=== PATIENT | male | born 1955 | race Caucasian/White ===

== ENCOUNTER 2018-01-06 20:48 | Observation (INO) | payer OTHER ==
[~2018-01-06] VITALS: Ht 195.6 cm; Wt 216.6 kg
[~2018-01-06 20:48] MED LIST: ALBU90OI6 INH; AMLO5; BENA20; BUDE6HFA; CLON1; FURO40 PO; HYDACE10B; Isosorbide Mono30 MG; METF850 PO; METO100ER PO; MONT10T; POTCHL20ER; WARF7.5 PO
[2018-01-06 21:33] LABS: Albumin, Blood 3.8 g/dL (3.4-5.0); Albumin/Globulin Ratio 0.9 (0.8-1.8); Bilirubin, Total 0.2 mg/dL (0.1-1.0); Bun/Creatinine Ratio 39.6 (12.0-20.0); Creatinine, Blood 1.82 mg/dL (0.60-1.20); Globulin, Blood 4.3 g/dL (2.2-4.0); Potassium, Blood 5.7 mmol/L (3.5-5.5); Total Protein, Blood 8.1 g/dL (6.4-8.2)
[2018-01-06] MEDS ORDERED: WARF7.5 PO (23:03)
[2018-01-06] MEDS ORDERED: SPIR25 (23:13)
[2018-01-07 04:32] LABS: International Normalized Ratio 2.56; Prothrombin Time Results 27.4 Sec (9.7-11.5)
[2018-01-07 04:37] LABS: Calcium, Blood 8.5 mg/dL (8.5-10.1); Creatinine, Blood 1.65 mg/dL (0.60-1.20); Potassium, Blood 5.4 mmol/L (3.5-5.5)
[2018-01-07] MEDS ORDERED: FURO40 PO (11:15)
[2018-01-08 04:00] LABS: International Normalized Ratio 3.21; Prothrombin Time Results 34.6 Sec (9.7-11.5)
[2018-01-08 04:09] LABS: Albumin, Blood 3.5 g/dL (3.4-5.0); Anion Gap 8 mmol/L (6-16); Blood Urea Nitrogen 39 mg/dL (8-24); Bun/Creatinine Ratio 29.8 (12.0-20.0); CO2, Blood 22 mmol/L (21-32); Calcium, Blood 9.1 mg/dL (8.5-10.1); Chloride, Blood 109 mmol/L (98-108); Creatinine, Blood 1.31 mg/dL (0.60-1.20); Glomerular Filtration Rate 59 (60-); Glucose, Blood 110 mg/dL (70-99); Phosphorus, Blood 2.6 mg/dL (2.5-4.9); Potassium, Blood 5.3 mmol/L (3.5-5.5); Sodium, Blood 139 mmol/L (136-145)
== END 2018-01-08 09:07 | disposition home or self-care (01) ==
LOC: ER 20:48 → PCU 20:49
PROVIDERS: Emergency Medicine; Internal Medicine; Pharmacist
DX: N17.9 Acute kidney failure, unspecified (principal); I13.0 Hypertensive heart and chronic kidney disease with heart failure and stage 1 through stage 4 chronic kidney disease, or unspecified chronic kidney disease; I50.9 Heart failure, unspecified; E11.22 Type 2 diabetes mellitus with diabetic chronic kidney disease; N18.9 Chronic kidney disease, unspecified; E87.5 Hyperkalemia; E66.01 Morbid (severe) obesity due to excess calories; I48.2 Chronic atrial fibrillation; Z98.890 Other specified postprocedural states; Z88.8 Allergy status to other drugs, medicaments and biological substances; Z79.01 Long term (current) use of anticoagulants; Z79.84 Long term (current) use of oral hypoglycemic drugs; Z79.899 Other long term (current) drug therapy
CPT/HCPCS: 36415; 76770; 80048; 80053; 80069; 82947; 84132; 85610; 93005; 93010; 94660; 94762; 96365; 96375; 96376; 99285; G0378; J0610; J1815; J7120

== ENCOUNTER 2018-04-21 12:15 | Emergency (ER) | payer OTHER ==
[~2018-04-21] VITALS: Ht 195.6 cm; Wt 200.0 kg
[~2018-04-21 12:15] MED LIST changes: +SPIR25
[2018-04-21] MEDS ORDERED: ULTRA-LIGHT RO1 EACH MC (13:56)
[2018-04-21] MEDS ORDERED: Percocet 7.5-31 EACH PO (13:57)
== END 2018-04-21 14:05 | disposition home or self-care (01) ==
LOC: ER 12:15
DX: S99.921A Unspecified injury of right foot, initial encounter (principal); S99.911A Unspecified injury of right ankle, initial encounter; I48.91 Unspecified atrial fibrillation; I10 Essential (primary) hypertension; J45.909 Unspecified asthma, uncomplicated; E11.9 Type 2 diabetes mellitus without complications; E78.5 Hyperlipidemia, unspecified; Z88.8 Allergy status to other drugs, medicaments and biological substances; Z79.899 Other long term (current) drug therapy; Z79.01 Long term (current) use of anticoagulants; Z79.51 Long term (current) use of inhaled steroids; Z87.891 Personal history of nicotine dependence; W01.0XXA Fall on same level from slipping, tripping and stumbling without subsequent striking against object, initial encounter
CPT/HCPCS: 73610; 73630; 99283-25

== ENCOUNTER 2018-06-02 00:13 | Day surgery (SDC) | payer OTHER ==
[~2018-06-02 00:13] MED LIST changes: +Percocet 7.5-31 EACH PO; +ULTRA-LIGHT RO1 EACH MC
== END 2018-06-02 22:46 | disposition home or self-care (01) ==
LOC: WOUND 00:13
DX: E11.622 Type 2 diabetes mellitus with other skin ulcer (principal); L97.812 Non-pressure chronic ulcer of other part of right lower leg with fat layer exposed; R60.0 Localized edema; E11.21 Type 2 diabetes mellitus with diabetic nephropathy; E11.51 Type 2 diabetes mellitus with diabetic peripheral angiopathy without gangrene; I48.91 Unspecified atrial fibrillation; E11.59 Type 2 diabetes mellitus with other circulatory complications; I11.0 Hypertensive heart disease with heart failure; I50.9 Heart failure, unspecified; E78.5 Hyperlipidemia, unspecified; Z79.01 Long term (current) use of anticoagulants; G47.33 Obstructive sleep apnea (adult) (pediatric); Z68.43 Body mass index [BMI] 50.0-59.9, adult

== ENCOUNTER → 2019-08-28 | Outpatient (CLI) | payer OTHER ==
[2019-08-28 20:24] LABS: U Amphetamine Screen Not Detected; U Barbituate Screen Not Detected; U Benzodiazapine Screen Not Detected; U Cannabinoids Screen Not Detected; U Cocaine Screen Not Detected; U Methadone Screen Not Detected; U Methamphetamine Screen Not Detected; U Opiates Screen Not Detected; U Phencyclidine Screen Not Detected
[2019-08-28 20:25] LABS: U Buprenorphine Screen Not Detected; U Oxycodone Screen Not Detected; U Propoxyphene Screen Not Detected
== END | disposition home or self-care (01) ==
LOC: LAB SHORT 19:11 → LAB 19:11
PROVIDERS: Nurse Practitioner Family
DX: Z51.81 Encounter for therapeutic drug level monitoring (principal); Z79.899 Other long term (current) drug therapy

== ENCOUNTER → 2021-03-17 | Outpatient (CLI) | payer OTHER ==
[2021-03-17 16:40] LABS: BASOPHILS ABSOLUTE AUTO 0.09 K/mm3 (0.00-0.23); BASOPHILS PERCENT AUTO 1 % (0-2); EOSINOPHILS ABSOLUTE AUTO 0.78 K/mm3 (0.00-0.68); EOSINOPHILS PERCENT AUTO 7 % (0-6); Hematocrit 37.7 % (37.0-53.0); IMMATURE GRAN ABSOLUTE AUTO 0.05 K/mm3 (0.00-0.10); IMMATURE GRAN PERCENT AUTO 0 % (0-1); LYMPHOCYTES ABSOLUTE AUTO 2.01 K/mm3 (0.84-5.20); LYMPHOCYTES PERCENT AUTO 18 % (21-46); MONOCYTES ABSOLUTE AUTO 0.93 K/mm3 (0.16-1.47); MONOCYTES PERCENT AUTO 8 % (4-13); Mean Corpuscular HGB 25.7 pg (26.0-34.0); Mean Corpuscular HGB Conc 31.8 g/dL (31.5-36.5); Mean Corpuscular Volume 81 fL (80-100); Mean Platelet Volume 10.9 fL (9.1-12.4); NEUTROPHILS PERCENT AUTO 66 % (41-73); Platelet Count 276 K/mm3 (150-400); RDW Coefficient Variation 15.1 % (11.7-14.2); RDW Standard Deviation 43.9 fL (35.1-46.3); Red Blood Cell Count 4.67 M/mm3 (4.30-5.90); White Blood Cell Count 11.46 K/mm3 (4.00-11.30)
[2021-03-17 16:59] LABS: Alanine Aminotransfer (ALT/SGP 28 U/L (12-78); Albumin, Blood 3.5 g/dL (3.4-5.0); Albumin/Globulin Ratio 0.8 (0.8-1.8); Alk Phos 95 U/L (50-136); Anion Gap 9 mmol/L (6-16); Aspartate Aminotrans (AST/SGOT 37 U/L (12-37); Bilirubin, Total 0.4 mg/dL (0.1-1.0); Blood Urea Nitrogen 32 mg/dL (8-24); Bun/Creatinine Ratio 22.4 (12.0-20.0); CHOL/HDL RATIO 3.7; CO2, Blood 19 mmol/L (21-32); Calcium, Blood 9.2 mg/dL (8.5-10.1); Chloride, Blood 103 mmol/L (98-108); Cholesterol 149 mg/dL (50-200); Creatinine, Blood 1.43 mg/dL (0.60-1.20); Globulin, Blood 4.6 g/dL (2.2-4.0); Glomerular Filtration Rate 50 (60-); Glucose, Blood 139 mg/dL (70-99); HDL Cholesterol 40 mg/dL (>39); LDL/HDL RATIO 2.1; Low Density Lipoprotein Chol 84 mg/dL (0-110); Potassium, Blood 5.3 mmol/L (3.5-5.5); Sodium, Blood 131 mmol/L (136-145); Thyroxine (T4) 10.3 ug/dL (4.5-12.1); Total Protein, Blood 8.1 g/dL (6.4-8.2); Triglycerides 123 mg/dL (30-160); Very Low Density Lipoprot Chol 24 mg/dL (6-32)
[2021-03-17 17:00] LABS: Thyroid Stimulating Hormone 0.976 uIU/mL (0.360-4.800)
[2021-03-17 17:10] LABS: U Buprenorphine Screen Not Detected; U Cannabinoids Screen Not Detected; U Opiates Screen DETECTED; U Oxycodone Screen Not Detected; U Phencyclidine Screen Not Detected; U Propoxyphene Screen Not Detected
[2021-03-17 17:11] LABS: U Amphetamine Screen Not Detected; U Barbituate Screen Not Detected; U Benzodiazapine Screen Not Detected; U Cocaine Screen Not Detected; U Methadone Screen Not Detected; U Methamphetamine Screen Not Detected
== END | disposition home or self-care (01) ==
LOC: LAB SHORT 15:36 → LAB 15:36 → LAB FUT 03-17 10:35
PROVIDERS: Nurse Practitioner Family
DX: E11.51 Type 2 diabetes mellitus with diabetic peripheral angiopathy without gangrene (principal); E66.9 Obesity, unspecified
CPT/HCPCS: 80053; 80061; 82043; 83036; 84436; 84443; 85025

== ENCOUNTER → 2021-05-28 | Outpatient (CLI) | payer OTHER ==
[2021-05-28 18:20] LABS: BASOPHILS ABSOLUTE AUTO 0.06 K/mm3 (0.00-0.23); BASOPHILS PERCENT AUTO 1 % (0-2); EOSINOPHILS ABSOLUTE AUTO 0.45 K/mm3 (0.00-0.68); EOSINOPHILS PERCENT AUTO 4 % (0-6); Hematocrit 35.2 % (37.0-53.0); Hemoglobin 11.3 g/dL (13.5-17.5); IMMATURE GRAN ABSOLUTE AUTO 0.05 K/mm3 (0.00-0.10); IMMATURE GRAN PERCENT AUTO 0 % (0-1); LYMPHOCYTES ABSOLUTE AUTO 1.62 K/mm3 (0.84-5.20); LYMPHOCYTES PERCENT AUTO 13 % (21-46); MONOCYTES ABSOLUTE AUTO 1.18 K/mm3 (0.16-1.47); MONOCYTES PERCENT AUTO 9 % (4-13); Mean Corpuscular HGB Conc 32.1 g/dL (31.5-36.5); Mean Corpuscular Volume 81 fL (80-100); Mean Platelet Volume 10.5 fL (9.1-12.4); NEUTROPHILS ABSOLUTE AUTO 9.21 K/mm3 (1.96-9.15); NEUTROPHILS PERCENT AUTO 73 % (41-73); Platelet Count 348 K/mm3 (150-400); RDW Coefficient Variation 13.7 % (11.7-14.2); RDW Standard Deviation 40.3 fL (35.1-46.3); Red Blood Cell Count 4.34 M/mm3 (4.30-5.90); White Blood Cell Count 12.57 K/mm3 (4.00-11.30)
== END | disposition home or self-care (01) ==
LOC: LAB SHORT 12:00
PROVIDERS: Nurse Practitioner Family
DX: L03.113 Cellulitis of right upper limb (principal)
CPT/HCPCS: 85025

== ENCOUNTER 2021-06-11 13:39 | Day surgery (SDC) | payer OTHER | END 2021-06-11 23:01 | disposition home or self-care (01) | LOC: WOUND 13:39 | DX: L03.113 Cellulitis of right upper limb (principal); I87.2 Venous insufficiency (chronic) (peripheral); Z88.8 Allergy status to other drugs, medicaments and biological substances; Z87.891 Personal history of nicotine dependence | CPT/HCPCS: G0463 ==

== ENCOUNTER → 2021-07-03 | Outpatient (CLI) | payer OTHER ==
[2021-07-03 17:01] LABS: BASOPHILS ABSOLUTE AUTO 0.03 K/mm3 (0.00-0.23); BASOPHILS PERCENT AUTO 0 % (0-2); EOSINOPHILS PERCENT AUTO 6 % (0-6); Hematocrit 33.9 % (37.0-53.0); Hemoglobin 10.4 g/dL (13.5-17.5); IMMATURE GRAN ABSOLUTE AUTO 0.05 K/mm3 (0.00-0.10); IMMATURE GRAN PERCENT AUTO 0 % (0-1); LYMPHOCYTES ABSOLUTE AUTO 1.71 K/mm3 (0.84-5.20); LYMPHOCYTES PERCENT AUTO 15 % (21-46); MONOCYTES ABSOLUTE AUTO 0.94 K/mm3 (0.16-1.47); MONOCYTES PERCENT AUTO 8 % (4-13); Mean Corpuscular HGB 25.1 pg (26.0-34.0); Mean Corpuscular HGB Conc 30.7 g/dL (31.5-36.5); Mean Corpuscular Volume 82 fL (80-100); Mean Platelet Volume 9.9 fL (9.1-12.4); NEUTROPHILS ABSOLUTE AUTO 7.89 K/mm3 (1.96-9.15); NEUTROPHILS PERCENT AUTO 70 % (41-73); Platelet Count 327 K/mm3 (150-400); RDW Coefficient Variation 14.4 % (11.7-14.2); RDW Standard Deviation 42.2 fL (35.1-46.3); Red Blood Cell Count 4.14 M/mm3 (4.30-5.90); White Blood Cell Count 11.32 K/mm3 (4.00-11.30)
[2021-07-03 17:14] LABS: Albumin, Blood 2.7 g/dL (3.4-5.0); Albumin/Globulin Ratio 0.6 (0.8-1.8); Bilirubin, Total 0.3 mg/dL (0.1-1.0); Bun/Creatinine Ratio 18.1 (12.0-20.0); Calcium, Blood 9.4 mg/dL (8.5-10.1); Creatinine, Blood 1.44 mg/dL (0.60-1.20); Globulin, Blood 4.8 g/dL (2.2-4.0); Potassium, Blood 4.2 mmol/L (3.5-5.5); Total Protein, Blood 7.5 g/dL (6.4-8.2); Uric Acid, Blood 10.2 mg/dL (3.5-7.2)
== END | disposition home or self-care (01) ==
LOC: LAB SHORT 14:00
PROVIDERS: Nurse Practitioner Family
DX: M1A.0210 Idiopathic chronic gout, right elbow, without tophus (tophi) (principal); M1A Chronic gout; L03.113 Cellulitis of right upper limb
CPT/HCPCS: 80053; 84550; 85025

== ENCOUNTER → 2021-10-09 | Outpatient (CLI) | payer OTHER ==
[2021-10-09 18:46] LABS: U Amphetamine Screen Not Detected; U Barbituate Screen Not Detected; U Benzodiazapine Screen Not Detected; U Buprenorphine Screen Not Detected; U Cannabinoids Screen Not Detected; U Cocaine Screen Not Detected; U Methadone Screen Not Detected; U Methamphetamine Screen Not Detected; U Opiates Screen DETECTED; U Oxycodone Screen Not Detected; U Phencyclidine Screen Not Detected; U Propoxyphene Screen Not Detected
== END | disposition home or self-care (01) ==
LOC: LAB 16:11 → LAB SHORT 16:11
PROVIDERS: Family Medicine
DX: Z51.81 Encounter for therapeutic drug level monitoring (principal); Z79.899 Other long term (current) drug therapy

== ENCOUNTER 2022-01-12 00:47 | Day surgery (SDC) | payer OTHER | END 2022-01-12 23:49 | disposition home or self-care (01) | LOC: WOUND 00:47 | DX: E11.621 Type 2 diabetes mellitus with foot ulcer (principal); L97.822 Non-pressure chronic ulcer of other part of left lower leg with fat layer exposed; L97.512 Non-pressure chronic ulcer of other part of right foot with fat layer exposed; I87.2 Venous insufficiency (chronic) (peripheral); E11.51 Type 2 diabetes mellitus with diabetic peripheral angiopathy without gangrene; J44.9 Chronic obstructive pulmonary disease, unspecified; I25.10 Atherosclerotic heart disease of native coronary artery without angina pectoris; I13.0 Hypertensive heart and chronic kidney disease with heart failure and stage 1 through stage 4 chronic kidney disease, or unspecified chronic kidney disease; E11.22 Type 2 diabetes mellitus with diabetic chronic kidney disease; I50.9 Heart failure, unspecified; N18.30 Chronic kidney disease, stage 3 unspecified; Z88.8 Allergy status to other drugs, medicaments and biological substances; Z87.891 Personal history of nicotine dependence | CPT/HCPCS: A9270; G0463 ==

== ENCOUNTER 2022-01-19 08:00 | Day surgery (SDC) | payer OTHER | END 2022-01-19 23:59 | disposition home or self-care (01) | LOC: WOUND | DX: E11.621 Type 2 diabetes mellitus with foot ulcer (principal); L97.512 Non-pressure chronic ulcer of other part of right foot with fat layer exposed; L97.822 Non-pressure chronic ulcer of other part of left lower leg with fat layer exposed; I87.2 Venous insufficiency (chronic) (peripheral); E11.51 Type 2 diabetes mellitus with diabetic peripheral angiopathy without gangrene; I48.91 Unspecified atrial fibrillation | CPT/HCPCS: A9270 ==

== ENCOUNTER 2022-01-26 02:33 | Day surgery (SDC) | payer OTHER | END 2022-01-26 23:15 | disposition home or self-care (01) | LOC: WOUND 02:33 | DX: E11.621 Type 2 diabetes mellitus with foot ulcer (principal); L97.512 Non-pressure chronic ulcer of other part of right foot with fat layer exposed; E11.622 Type 2 diabetes mellitus with other skin ulcer; L97.822 Non-pressure chronic ulcer of other part of left lower leg with fat layer exposed; E11.51 Type 2 diabetes mellitus with diabetic peripheral angiopathy without gangrene; I87.2 Venous insufficiency (chronic) (peripheral); I10 Essential (primary) hypertension; I25.5 Ischemic cardiomyopathy; I48.91 Unspecified atrial fibrillation; Z79.01 Long term (current) use of anticoagulants | CPT/HCPCS: A9270 ==

== ENCOUNTER 2022-01-27 04:45 | Day surgery (SDC) | payer OTHER | END 2022-01-27 22:59 | disposition home or self-care (01) | LOC: WOUND 04:45 | DX: E11.621 Type 2 diabetes mellitus with foot ulcer (principal); L97.512 Non-pressure chronic ulcer of other part of right foot with fat layer exposed; I87.2 Venous insufficiency (chronic) (peripheral); E11.51 Type 2 diabetes mellitus with diabetic peripheral angiopathy without gangrene ==

== ENCOUNTER 2022-01-30 03:41 | Day surgery (SDC) | payer OTHER | END 2022-01-30 23:12 | disposition home or self-care (01) | LOC: WOUND 03:41 | DX: E11.621 Type 2 diabetes mellitus with foot ulcer (principal); L97.512 Non-pressure chronic ulcer of other part of right foot with fat layer exposed; I87.2 Venous insufficiency (chronic) (peripheral); E11.51 Type 2 diabetes mellitus with diabetic peripheral angiopathy without gangrene ==

== ENCOUNTER 2022-02-03 01:33 | Day surgery (SDC) | payer OTHER | END 2022-02-03 23:00 | disposition home or self-care (01) | LOC: WOUND 01:33 | DX: I87.313 Chronic venous hypertension (idiopathic) with ulcer of bilateral lower extremity (principal); I87.2 Venous insufficiency (chronic) (peripheral); E11.621 Type 2 diabetes mellitus with foot ulcer; E11.622 Type 2 diabetes mellitus with other skin ulcer; L97.512 Non-pressure chronic ulcer of other part of right foot with fat layer exposed; L97.812 Non-pressure chronic ulcer of other part of right lower leg with fat layer exposed; L97.822 Non-pressure chronic ulcer of other part of left lower leg with fat layer exposed | CPT/HCPCS: A9270 ==

== ENCOUNTER 2022-02-09 00:31 | Day surgery (SDC) | payer OTHER | END 2022-02-09 23:46 | disposition home or self-care (01) | LOC: WOUND 00:31 | DX: I87.313 Chronic venous hypertension (idiopathic) with ulcer of bilateral lower extremity (principal); E11.622 Type 2 diabetes mellitus with other skin ulcer; L97.822 Non-pressure chronic ulcer of other part of left lower leg with fat layer exposed; L97.812 Non-pressure chronic ulcer of other part of right lower leg with fat layer exposed; E11.621 Type 2 diabetes mellitus with foot ulcer; L97.512 Non-pressure chronic ulcer of other part of right foot with fat layer exposed; I10 Essential (primary) hypertension; I25.5 Ischemic cardiomyopathy; Z68.43 Body mass index [BMI] 50.0-59.9, adult | CPT/HCPCS: A9270 ==

== ENCOUNTER 2022-02-13 02:25 | Day surgery (SDC) | payer OTHER | END 2022-02-13 23:16 | disposition home or self-care (01) | LOC: WOUND 02:25 | DX: I87.313 Chronic venous hypertension (idiopathic) with ulcer of bilateral lower extremity (principal); E11.622 Type 2 diabetes mellitus with other skin ulcer; L97.822 Non-pressure chronic ulcer of other part of left lower leg with fat layer exposed; L97.812 Non-pressure chronic ulcer of other part of right lower leg with fat layer exposed; E11.621 Type 2 diabetes mellitus with foot ulcer; L97.512 Non-pressure chronic ulcer of other part of right foot with fat layer exposed; I87.2 Venous insufficiency (chronic) (peripheral); E11.51 Type 2 diabetes mellitus with diabetic peripheral angiopathy without gangrene ==

== ENCOUNTER 2022-02-19 01:33 | Day surgery (SDC) | payer OTHER | END 2022-02-20 23:37 | disposition home or self-care (01) | LOC: WOUND 01:33 | DX: E11.621 Type 2 diabetes mellitus with foot ulcer (principal); I87.313 Chronic venous hypertension (idiopathic) with ulcer of bilateral lower extremity; L97.512 Non-pressure chronic ulcer of other part of right foot with fat layer exposed; E11.622 Type 2 diabetes mellitus with other skin ulcer; L97.812 Non-pressure chronic ulcer of other part of right lower leg with fat layer exposed; L97.822 Non-pressure chronic ulcer of other part of left lower leg with fat layer exposed; I87.2 Venous insufficiency (chronic) (peripheral); E11.51 Type 2 diabetes mellitus with diabetic peripheral angiopathy without gangrene | CPT/HCPCS: A9270; G0463 ==

== ENCOUNTER 2022-02-27 01:16 | Day surgery (SDC) | payer OTHER | END 2022-02-27 23:08 | disposition home or self-care (01) | LOC: WOUND 01:16 | DX: I87.313 Chronic venous hypertension (idiopathic) with ulcer of bilateral lower extremity (principal); E11.621 Type 2 diabetes mellitus with foot ulcer; L97.512 Non-pressure chronic ulcer of other part of right foot with fat layer exposed; L97.522 Non-pressure chronic ulcer of other part of left foot with fat layer exposed; E11.622 Type 2 diabetes mellitus with other skin ulcer; L97.212 Non-pressure chronic ulcer of right calf with fat layer exposed; L97.812 Non-pressure chronic ulcer of other part of right lower leg with fat layer exposed; L97.822 Non-pressure chronic ulcer of other part of left lower leg with fat layer exposed; L97.322 Non-pressure chronic ulcer of left ankle with fat layer exposed; E11.51 Type 2 diabetes mellitus with diabetic peripheral angiopathy without gangrene; I87.2 Venous insufficiency (chronic) (peripheral); I10 Essential (primary) hypertension; I48.91 Unspecified atrial fibrillation; Z79.01 Long term (current) use of anticoagulants | CPT/HCPCS: A9270; G0463 ==

== ENCOUNTER 2022-03-06 02:26 | Day surgery (SDC) | payer OTHER | END 2022-03-06 23:22 | disposition home or self-care (01) | LOC: WOUND 02:26 | DX: E11.622 Type 2 diabetes mellitus with other skin ulcer (principal); L97.822 Non-pressure chronic ulcer of other part of left lower leg with fat layer exposed; I87.313 Chronic venous hypertension (idiopathic) with ulcer of bilateral lower extremity; L97.812 Non-pressure chronic ulcer of other part of right lower leg with fat layer exposed; E11.51 Type 2 diabetes mellitus with diabetic peripheral angiopathy without gangrene; E11.621 Type 2 diabetes mellitus with foot ulcer; L97.512 Non-pressure chronic ulcer of other part of right foot with fat layer exposed; I10 Essential (primary) hypertension; I25.5 Ischemic cardiomyopathy | CPT/HCPCS: A9270 ==

== ENCOUNTER 2022-03-13 01:49 | Day surgery (SDC) | payer OTHER | END 2022-03-13 23:34 | disposition home or self-care (01) | LOC: WOUND 01:49 | DX: I87.313 Chronic venous hypertension (idiopathic) with ulcer of bilateral lower extremity (principal); E11.621 Type 2 diabetes mellitus with foot ulcer; E11.622 Type 2 diabetes mellitus with other skin ulcer; L97.822 Non-pressure chronic ulcer of other part of left lower leg with fat layer exposed; L97.812 Non-pressure chronic ulcer of other part of right lower leg with fat layer exposed; L97.512 Non-pressure chronic ulcer of other part of right foot with fat layer exposed; L97.522 Non-pressure chronic ulcer of other part of left foot with fat layer exposed; I87.2 Venous insufficiency (chronic) (peripheral); E11.51 Type 2 diabetes mellitus with diabetic peripheral angiopathy without gangrene | CPT/HCPCS: A9270 ==

== ENCOUNTER 2022-03-23 00:10 | Day surgery (SDC) | payer OTHER | END 2022-03-24 00:49 | disposition home or self-care (01) | LOC: WOUND 00:10 | PROC: 0JBP0ZZ Excision of Left Lower Leg Subcutaneous Tissue and Fascia, Open Approach (ICD-10-PCS; principal; 2022-03-23) | DX: E11.51 Type 2 diabetes mellitus with diabetic peripheral angiopathy without gangrene (principal); L97.822 Non-pressure chronic ulcer of other part of left lower leg with fat layer exposed; I70.248 Atherosclerosis of native arteries of left leg with ulceration of other part of lower leg; L97.812 Non-pressure chronic ulcer of other part of right lower leg with fat layer exposed; I70.238 Atherosclerosis of native arteries of right leg with ulceration of other part of lower leg; L98.492 Non-pressure chronic ulcer of skin of other sites with fat layer exposed; I70.25 Atherosclerosis of native arteries of other extremities with ulceration; L97.819 Non-pressure chronic ulcer of other part of right lower leg with unspecified severity; I10 Essential (primary) hypertension; I87.313 Chronic venous hypertension (idiopathic) with ulcer of bilateral lower extremity; I87.2 Venous insufficiency (chronic) (peripheral); I48.91 Unspecified atrial fibrillation; Z79.01 Long term (current) use of anticoagulants | CPT/HCPCS: A9270 ==

== ENCOUNTER 2022-03-30 01:13 | Day surgery (SDC) | payer OTHER | END 2022-03-30 23:19 | disposition home or self-care (01) | LOC: WOUND 01:13 | DX: I87.313 Chronic venous hypertension (idiopathic) with ulcer of bilateral lower extremity (principal); L97.822 Non-pressure chronic ulcer of other part of left lower leg with fat layer exposed; L97.812 Non-pressure chronic ulcer of other part of right lower leg with fat layer exposed; I87.2 Venous insufficiency (chronic) (peripheral); E11.621 Type 2 diabetes mellitus with foot ulcer; E11.622 Type 2 diabetes mellitus with other skin ulcer; E11.51 Type 2 diabetes mellitus with diabetic peripheral angiopathy without gangrene; L97.512 Non-pressure chronic ulcer of other part of right foot with fat layer exposed | CPT/HCPCS: A9270 ==

== ENCOUNTER 2022-04-08 06:26 | Day surgery (SDC) | payer OTHER | END 2022-04-08 23:31 | disposition home or self-care (01) | LOC: WOUND 06:26 | DX: I87.313 Chronic venous hypertension (idiopathic) with ulcer of bilateral lower extremity (principal); L97.822 Non-pressure chronic ulcer of other part of left lower leg with fat layer exposed; L97.812 Non-pressure chronic ulcer of other part of right lower leg with fat layer exposed; E11.621 Type 2 diabetes mellitus with foot ulcer; L97.512 Non-pressure chronic ulcer of other part of right foot with fat layer exposed; I87.2 Venous insufficiency (chronic) (peripheral) ==

== ENCOUNTER 2022-04-15 07:34 | Day surgery (SDC) | payer OTHER | END 2022-04-15 23:41 | disposition home or self-care (01) | LOC: WOUND 07:34 | DX: E11.622 Type 2 diabetes mellitus with other skin ulcer (principal); E11.621 Type 2 diabetes mellitus with foot ulcer; L97.822 Non-pressure chronic ulcer of other part of left lower leg with fat layer exposed; L97.812 Non-pressure chronic ulcer of other part of right lower leg with fat layer exposed; E11.51 Type 2 diabetes mellitus with diabetic peripheral angiopathy without gangrene; L97.512 Non-pressure chronic ulcer of other part of right foot with fat layer exposed; I87.2 Venous insufficiency (chronic) (peripheral); I87.313 Chronic venous hypertension (idiopathic) with ulcer of bilateral lower extremity; L97.212 Non-pressure chronic ulcer of right calf with fat layer exposed | CPT/HCPCS: A9270; G0463 ==

== ENCOUNTER 2022-05-04 00:51 | Day surgery (SDC) | payer OTHER | END 2022-05-04 23:00 | disposition home or self-care (01) | LOC: WOUND 00:51 | DX: E11.622 Type 2 diabetes mellitus with other skin ulcer (principal); E11.621 Type 2 diabetes mellitus with foot ulcer; I87.313 Chronic venous hypertension (idiopathic) with ulcer of bilateral lower extremity; L97.512 Non-pressure chronic ulcer of other part of right foot with fat layer exposed; L97.212 Non-pressure chronic ulcer of right calf with fat layer exposed; L97.522 Non-pressure chronic ulcer of other part of left foot with fat layer exposed; L97.822 Non-pressure chronic ulcer of other part of left lower leg with fat layer exposed; L97.812 Non-pressure chronic ulcer of other part of right lower leg with fat layer exposed; E11.51 Type 2 diabetes mellitus with diabetic peripheral angiopathy without gangrene; I87.2 Venous insufficiency (chronic) (peripheral); I10 Essential (primary) hypertension; I25.5 Ischemic cardiomyopathy; I48.91 Unspecified atrial fibrillation | CPT/HCPCS: A9270; G0463 ==

== ENCOUNTER 2022-05-18 02:04 | Day surgery (SDC) | payer OTHER | END 2022-05-18 23:26 | disposition home or self-care (01) | LOC: WOUND 02:04 | DX: E11.622 Type 2 diabetes mellitus with other skin ulcer (principal); I87.313 Chronic venous hypertension (idiopathic) with ulcer of bilateral lower extremity; E11.621 Type 2 diabetes mellitus with foot ulcer; L97.812 Non-pressure chronic ulcer of other part of right lower leg with fat layer exposed; L97.212 Non-pressure chronic ulcer of right calf with fat layer exposed; L97.822 Non-pressure chronic ulcer of other part of left lower leg with fat layer exposed; L97.522 Non-pressure chronic ulcer of other part of left foot with fat layer exposed; L97.512 Non-pressure chronic ulcer of other part of right foot with fat layer exposed; I87.2 Venous insufficiency (chronic) (peripheral); E11.51 Type 2 diabetes mellitus with diabetic peripheral angiopathy without gangrene; I10 Essential (primary) hypertension; I25.5 Ischemic cardiomyopathy; I48.91 Unspecified atrial fibrillation; Z79.01 Long term (current) use of anticoagulants | CPT/HCPCS: A9270 ==

== ENCOUNTER 2022-05-25 02:38 | Day surgery (SDC) | payer OTHER | END 2022-05-25 23:16 | disposition home or self-care (01) | LOC: WOUND 02:38 | DX: I87.313 Chronic venous hypertension (idiopathic) with ulcer of bilateral lower extremity (principal); E11.622 Type 2 diabetes mellitus with other skin ulcer; E11.621 Type 2 diabetes mellitus with foot ulcer; L97.812 Non-pressure chronic ulcer of other part of right lower leg with fat layer exposed; L97.822 Non-pressure chronic ulcer of other part of left lower leg with fat layer exposed; L97.512 Non-pressure chronic ulcer of other part of right foot with fat layer exposed; E11.51 Type 2 diabetes mellitus with diabetic peripheral angiopathy without gangrene; I87.2 Venous insufficiency (chronic) (peripheral); I10 Essential (primary) hypertension; I25.5 Ischemic cardiomyopathy; I48.91 Unspecified atrial fibrillation; Z79.01 Long term (current) use of anticoagulants | CPT/HCPCS: A9270 ==

== ENCOUNTER 2022-06-01 00:17 | Day surgery (SDC) | payer OTHER | END 2022-06-01 22:50 | disposition home or self-care (01) | LOC: WOUND 00:17 | DX: E11.622 Type 2 diabetes mellitus with other skin ulcer (principal); I87.313 Chronic venous hypertension (idiopathic) with ulcer of bilateral lower extremity; L97.822 Non-pressure chronic ulcer of other part of left lower leg with fat layer exposed; L97.812 Non-pressure chronic ulcer of other part of right lower leg with fat layer exposed; I87.2 Venous insufficiency (chronic) (peripheral); E11.51 Type 2 diabetes mellitus with diabetic peripheral angiopathy without gangrene; L97.512 Non-pressure chronic ulcer of other part of right foot with fat layer exposed | CPT/HCPCS: A9270 ==

== ENCOUNTER 2022-06-08 02:54 | Day surgery (SDC) | payer OTHER | END 2022-06-08 23:07 | disposition home or self-care (01) | LOC: WOUND 02:54 | DX: I87.313 Chronic venous hypertension (idiopathic) with ulcer of bilateral lower extremity (principal); L97.312 Non-pressure chronic ulcer of right ankle with fat layer exposed; L97.812 Non-pressure chronic ulcer of other part of right lower leg with fat layer exposed; I87.2 Venous insufficiency (chronic) (peripheral); L97.512 Non-pressure chronic ulcer of other part of right foot with fat layer exposed; E11.621 Type 2 diabetes mellitus with foot ulcer; E11.622 Type 2 diabetes mellitus with other skin ulcer | CPT/HCPCS: A9270 ==

== ENCOUNTER 2022-06-15 01:36 | Day surgery (SDC) | payer OTHER | END 2022-06-15 23:37 | disposition home or self-care (01) | LOC: WOUND 01:36 | DX: I87.313 Chronic venous hypertension (idiopathic) with ulcer of bilateral lower extremity (principal); L97.812 Non-pressure chronic ulcer of other part of right lower leg with fat layer exposed; L97.822 Non-pressure chronic ulcer of other part of left lower leg with fat layer exposed; I87.2 Venous insufficiency (chronic) (peripheral); E11.51 Type 2 diabetes mellitus with diabetic peripheral angiopathy without gangrene; E11.621 Type 2 diabetes mellitus with foot ulcer; E11.622 Type 2 diabetes mellitus with other skin ulcer; L97.512 Non-pressure chronic ulcer of other part of right foot with fat layer exposed | CPT/HCPCS: A9270 ==

== ENCOUNTER 2022-06-22 01:33 | Day surgery (SDC) | payer OTHER | END 2022-06-22 23:30 | disposition home or self-care (01) | LOC: WOUND 01:33 | DX: E11.622 Type 2 diabetes mellitus with other skin ulcer (principal); I87.313 Chronic venous hypertension (idiopathic) with ulcer of bilateral lower extremity; L97.812 Non-pressure chronic ulcer of other part of right lower leg with fat layer exposed; L97.822 Non-pressure chronic ulcer of other part of left lower leg with fat layer exposed; E11.621 Type 2 diabetes mellitus with foot ulcer; L97.512 Non-pressure chronic ulcer of other part of right foot with fat layer exposed; I87.2 Venous insufficiency (chronic) (peripheral); E11.51 Type 2 diabetes mellitus with diabetic peripheral angiopathy without gangrene; I10 Essential (primary) hypertension; I25.5 Ischemic cardiomyopathy; I48.91 Unspecified atrial fibrillation; Z79.01 Long term (current) use of anticoagulants | CPT/HCPCS: A9270 ==

== ENCOUNTER 2022-06-29 01:18 | Day surgery (SDC) | payer OTHER | END 2022-06-29 23:37 | disposition home or self-care (01) | DX: I87.313 Chronic venous hypertension (idiopathic) with ulcer of bilateral lower extremity (principal); L97.822 Non-pressure chronic ulcer of other part of left lower leg with fat layer exposed; L97.812 Non-pressure chronic ulcer of other part of right lower leg with fat layer exposed; I87.2 Venous insufficiency (chronic) (peripheral); L97.512 Non-pressure chronic ulcer of other part of right foot with fat layer exposed; E11.621 Type 2 diabetes mellitus with foot ulcer; E11.622 Type 2 diabetes mellitus with other skin ulcer ==

== ENCOUNTER 2022-07-06 01:02 | Day surgery (SDC) | payer OTHER | END 2022-07-06 23:00 | disposition home or self-care (01) | LOC: WOUND 01:02 | DX: E11.622 Type 2 diabetes mellitus with other skin ulcer (principal); E11.621 Type 2 diabetes mellitus with foot ulcer; I87.313 Chronic venous hypertension (idiopathic) with ulcer of bilateral lower extremity; L97.822 Non-pressure chronic ulcer of other part of left lower leg with fat layer exposed; L97.812 Non-pressure chronic ulcer of other part of right lower leg with fat layer exposed; I87.2 Venous insufficiency (chronic) (peripheral); E11.51 Type 2 diabetes mellitus with diabetic peripheral angiopathy without gangrene; L97.512 Non-pressure chronic ulcer of other part of right foot with fat layer exposed | CPT/HCPCS: A9270 ==

== ENCOUNTER → 2022-07-16 | Outpatient (CLI) | payer OTHER ==
[2022-07-17 16:30] LABS: U Amphetamine Screen Not Detected; U Barbituate Screen Not Detected; U Benzodiazapine Screen Not Detected; U Buprenorphine Screen Not Detected; U Cannabinoids Screen Not Detected; U Cocaine Screen Not Detected; U Methadone Screen Not Detected; U Methamphetamine Screen Not Detected; U Opiates Screen DETECTED; U Oxycodone Screen Not Detected; U Phencyclidine Screen Not Detected; U Propoxyphene Screen Not Detected
== END ==
LOC: LAB 13:35 → LAB SHORT 13:35
PROVIDERS: Physician Assistant
DX: M54.9 Dorsalgia, unspecified (principal); Z79.891 Long term (current) use of opiate analgesic; Z02.83 Encounter for blood-alcohol and blood-drug test

== ENCOUNTER 2022-07-20 00:53 | Day surgery (SDC) | payer OTHER | END 2022-07-20 22:58 | disposition home or self-care (01) | LOC: WOUND 00:53 | DX: E11.622 Type 2 diabetes mellitus with other skin ulcer (principal); L97.812 Non-pressure chronic ulcer of other part of right lower leg with fat layer exposed; I87.2 Venous insufficiency (chronic) (peripheral); L97.822 Non-pressure chronic ulcer of other part of left lower leg with fat layer exposed; I48.91 Unspecified atrial fibrillation; I25.5 Ischemic cardiomyopathy; I10 Essential (primary) hypertension; I87.313 Chronic venous hypertension (idiopathic) with ulcer of bilateral lower extremity; L97.512 Non-pressure chronic ulcer of other part of right foot with fat layer exposed; E11.621 Type 2 diabetes mellitus with foot ulcer | CPT/HCPCS: A9270 ==

== ENCOUNTER 2022-08-12 03:45 | Day surgery (SDC) | payer OTHER | END 2022-08-12 23:08 | disposition home or self-care (01) | LOC: WOUND 03:45 | DX: I87.313 Chronic venous hypertension (idiopathic) with ulcer of bilateral lower extremity (principal); E11.622 Type 2 diabetes mellitus with other skin ulcer; I87.2 Venous insufficiency (chronic) (peripheral); L97.812 Non-pressure chronic ulcer of other part of right lower leg with fat layer exposed; L97.822 Non-pressure chronic ulcer of other part of left lower leg with fat layer exposed; E11.621 Type 2 diabetes mellitus with foot ulcer; L97.512 Non-pressure chronic ulcer of other part of right foot with fat layer exposed; E11.51 Type 2 diabetes mellitus with diabetic peripheral angiopathy without gangrene | CPT/HCPCS: A9270 ==

== ENCOUNTER 2022-08-17 02:57 | Day surgery (SDC) | payer OTHER | END 2022-08-17 23:09 | disposition home or self-care (01) | LOC: WOUND 02:57 | DX: I87.313 Chronic venous hypertension (idiopathic) with ulcer of bilateral lower extremity (principal); L97.812 Non-pressure chronic ulcer of other part of right lower leg with fat layer exposed; L97.822 Non-pressure chronic ulcer of other part of left lower leg with fat layer exposed; I87.2 Venous insufficiency (chronic) (peripheral); I73.9 Peripheral vascular disease, unspecified; L97.512 Non-pressure chronic ulcer of other part of right foot with fat layer exposed; E11.621 Type 2 diabetes mellitus with foot ulcer; E11.622 Type 2 diabetes mellitus with other skin ulcer | CPT/HCPCS: A9270 ==

== ENCOUNTER 2022-08-24 01:04 | Day surgery (SDC) | payer OTHER | END 2022-08-24 23:00 | disposition home or self-care (01) | LOC: WOUND 01:04 | DX: E11.621 Type 2 diabetes mellitus with foot ulcer (principal); L97.822 Non-pressure chronic ulcer of other part of left lower leg with fat layer exposed; L97.812 Non-pressure chronic ulcer of other part of right lower leg with fat layer exposed; I73.9 Peripheral vascular disease, unspecified; I87.313 Chronic venous hypertension (idiopathic) with ulcer of bilateral lower extremity | CPT/HCPCS: A9270 ==

== ENCOUNTER 2022-09-07 00:14 | Day surgery (SDC) | payer OTHER | END 2022-09-07 23:17 | disposition home or self-care (01) | LOC: WOUND 00:14 | DX: E11.622 Type 2 diabetes mellitus with other skin ulcer (principal); L97.822 Non-pressure chronic ulcer of other part of left lower leg with fat layer exposed; I87.313 Chronic venous hypertension (idiopathic) with ulcer of bilateral lower extremity; I87.2 Venous insufficiency (chronic) (peripheral); L97.812 Non-pressure chronic ulcer of other part of right lower leg with fat layer exposed; E11.621 Type 2 diabetes mellitus with foot ulcer; L97.522 Non-pressure chronic ulcer of other part of left foot with fat layer exposed; I73.9 Peripheral vascular disease, unspecified; L97.512 Non-pressure chronic ulcer of other part of right foot with fat layer exposed | CPT/HCPCS: A9270 ==

== ENCOUNTER 2022-09-28 00:45 | Day surgery (SDC) | payer OTHER | END 2022-09-28 23:40 | disposition home or self-care (01) | LOC: WOUND 00:45 | DX: E11.622 Type 2 diabetes mellitus with other skin ulcer (principal); I87.313 Chronic venous hypertension (idiopathic) with ulcer of bilateral lower extremity; L97.822 Non-pressure chronic ulcer of other part of left lower leg with fat layer exposed; L97.812 Non-pressure chronic ulcer of other part of right lower leg with fat layer exposed; E11.621 Type 2 diabetes mellitus with foot ulcer; L97.522 Non-pressure chronic ulcer of other part of left foot with fat layer exposed; I87.2 Venous insufficiency (chronic) (peripheral); E11.51 Type 2 diabetes mellitus with diabetic peripheral angiopathy without gangrene; I10 Essential (primary) hypertension; I48.91 Unspecified atrial fibrillation; Z79.01 Long term (current) use of anticoagulants | CPT/HCPCS: A9270 ==

== ENCOUNTER 2022-10-05 01:11 | Day surgery (SDC) | payer OTHER | END 2022-10-05 22:50 | disposition home or self-care (01) | LOC: WOUND 01:11 | DX: I87.313 Chronic venous hypertension (idiopathic) with ulcer of bilateral lower extremity (principal); E11.622 Type 2 diabetes mellitus with other skin ulcer; L97.822 Non-pressure chronic ulcer of other part of left lower leg with fat layer exposed; I87.2 Venous insufficiency (chronic) (peripheral); L97.812 Non-pressure chronic ulcer of other part of right lower leg with fat layer exposed; E11.51 Type 2 diabetes mellitus with diabetic peripheral angiopathy without gangrene; E11.621 Type 2 diabetes mellitus with foot ulcer; L97.512 Non-pressure chronic ulcer of other part of right foot with fat layer exposed | CPT/HCPCS: A9270; G0463 ==

== ENCOUNTER 2022-10-19 00:08 | Day surgery (SDC) | payer OTHER | END 2022-10-19 23:14 | disposition home or self-care (01) | LOC: WOUND 00:08 | DX: E11.622 Type 2 diabetes mellitus with other skin ulcer (principal); L97.822 Non-pressure chronic ulcer of other part of left lower leg with fat layer exposed; I87.2 Venous insufficiency (chronic) (peripheral); I87.313 Chronic venous hypertension (idiopathic) with ulcer of bilateral lower extremity; E11.51 Type 2 diabetes mellitus with diabetic peripheral angiopathy without gangrene; E11.621 Type 2 diabetes mellitus with foot ulcer; L97.512 Non-pressure chronic ulcer of other part of right foot with fat layer exposed | CPT/HCPCS: A9270 ==

== ENCOUNTER 2022-11-09 01:22 | Day surgery (SDC) | payer OTHER | END 2022-11-09 22:58 | disposition home or self-care (01) | LOC: WOUND 01:22 | DX: E11.622 Type 2 diabetes mellitus with other skin ulcer (principal); L97.822 Non-pressure chronic ulcer of other part of left lower leg with fat layer exposed; L97.812 Non-pressure chronic ulcer of other part of right lower leg with fat layer exposed; I87.313 Chronic venous hypertension (idiopathic) with ulcer of bilateral lower extremity; I87.2 Venous insufficiency (chronic) (peripheral); L97.512 Non-pressure chronic ulcer of other part of right foot with fat layer exposed; E11.621 Type 2 diabetes mellitus with foot ulcer | CPT/HCPCS: A9270 ==

== ENCOUNTER 2022-12-03 00:29 | Day surgery (SDC) | payer OTHER | END 2022-12-03 22:55 | disposition home or self-care (01) | LOC: WOUND 00:29 | DX: I87.313 Chronic venous hypertension (idiopathic) with ulcer of bilateral lower extremity (principal); E11.622 Type 2 diabetes mellitus with other skin ulcer; L97.822 Non-pressure chronic ulcer of other part of left lower leg with fat layer exposed; L97.812 Non-pressure chronic ulcer of other part of right lower leg with fat layer exposed; E11.621 Type 2 diabetes mellitus with foot ulcer; L97.512 Non-pressure chronic ulcer of other part of right foot with fat layer exposed; I87.2 Venous insufficiency (chronic) (peripheral); E11.51 Type 2 diabetes mellitus with diabetic peripheral angiopathy without gangrene; I10 Essential (primary) hypertension; I48.91 Unspecified atrial fibrillation | CPT/HCPCS: A9270 ==